=== PATIENT | female | born 1995 | race Caucasian/White ===

== ENCOUNTER 2023-05-02 14:22 | Outpatient (CLI) | payer BC, SELFPAY | END 2023-05-02 14:23 | disposition home or self-care (01) | PROVIDERS: PCP Obstetrics & Gynecology; Visit Provider Advanced Practice Midwife | DX: O20.0 Threatened abortion (principal) | CPT/HCPCS: 36415; 84144; 84702 ==

== ENCOUNTER 2023-05-04 08:29 | Outpatient (CLI) | payer BC, SELFPAY | END 2023-05-04 08:30 | disposition home or self-care (01) | LOC: ANHLAB 08:32 | PROVIDERS: PCP Obstetrics & Gynecology; Visit Provider Advanced Practice Midwife | DX: O20.0 Threatened abortion (principal) | CPT/HCPCS: 36415; 84702 ==

== ENCOUNTER 2023-05-09 09:05 | Outpatient (CLI) | payer BC, SELFPAY ==
[2023-05-09 09:59] LABS: Beta HCG Quantitative 27.21 mIU/ML
== END 2023-05-09 09:06 | disposition home or self-care (01) ==
PROVIDERS: PCP Obstetrics & Gynecology; Visit Provider Advanced Practice Midwife
DX: O20.0 Threatened abortion (principal)
CPT/HCPCS: 36415; 84702